=== PATIENT | male | born 1930 | race Caucasian/White ===

== ENCOUNTER 2019-03-23 18:36 | Inpatient (IN) | payer MEDICARE, BC ==
[~2019-03-23] VITALS: Ht 175.3 cm; Wt 82.9 kg
[2019-03-23] MEDS ORDERED: VITA100C8 PO (19:13)
[2019-03-23] MEDS ORDERED: CLOP75TA52 PO (19:13)
[2019-03-23] MEDS ORDERED: LEVO100T PO (19:13)
[2019-03-23] MEDS ORDERED: SELE200T10 PO (19:13)
[2019-03-23] MEDS ORDERED: LOSA25TA12 PO (19:13)
[2019-03-23] MEDS ORDERED: ASPI-496 PO (19:13)
[2019-03-23 20:23] LABS: BASOPHILS # (AUTO) 0.02 x10^3/uL (0-0.1); BASOPHILS % (AUTO) 0 % (0-1); EOSINOPHILS # (AUTO) 0.05 x10^3/uL (0-0.4); EOSINOPHILS % (AUTO) 1 % (1-7); LYMPHOCYTES # (AUTO) 1.64 x10^3/uL (1-3.4); LYMPHOCYTES % (AUTO) 27 % (22-44); MD NO; MEAN CORPUSCULAR HEMOGLOBIN 32.2 pg (27.5-34.5); MEAN CORPUSCULAR HGB CONC 33.7 g/dL (33.2-36.2); MEAN CORPUSCULAR VOLUME 95.5 fL (81-97); MEAN PLATELET VOLUME 8.4 fL (7.4-10.4); MONOCYTES # (AUTO) 0.43 x10^3/uL (0.2-0.8); MONOCYTES % (AUTO) 7 % (2-9); NEUTROPHILS # (AUTO) 3.86 x10^3/uL (1.8-6.8); NEUTROPHILS % (AUTO) 64 % (42-75); PLATELET COUNT 215 x10^3/uL (130-400); RED BLOOD COUNT 3.92 x10^6/uL (4.38-5.82); RED CELL DISTRIBUTION WIDTH 13.4 % (9.4-14.8)
[2019-03-23 20:33] LABS: ALBUMIN 3.3 g/dL (3.4-5.0); ANION GAP 9 mmol/L (5-15); CALCIUM 8.5 mg/dL (8.5-10.1); CHLORIDE 110 mmol/L (98-107); CREATININE 0.78 mg/dL (0.7-1.3); INTERNATIONAL NORMALIZED RATIO 1.05 (0.93-1.1)
--- NOTE | 2019-03-23 21:20 | NUR ---
UA COLLECTED AND SENT.
--- NOTE | 2019-03-23 21:42 | NUR ---
RECEIVED REPORT FROM CYNTHIA FRIEDMAN, ASSUMING CARE
[2019-03-23 21:55] LABS: MICROSCOPIC INDICATED
--- NOTE | 2019-03-23 21:59 | NUR ---
MD TO BEDSIDE TO UPDATE PT ON POC. PT TO BE ADMITTED TO [facility] FOR UROLOGY CONSULT. CBI CONTINUING AT THIS TIME.
[2019-03-23 22:05] LABS: CULTURE INDICATED? YES
[2019-03-23] MEDS ORDERED: ONDANSETRON 2MG/ML, 2ML ONE (22:16)
[2019-03-23] MEDS ORDERED: MORPHINE SULFATE 4 MG/ML, 1ML ONE (22:17)
--- NOTE | 2019-03-23 22:19 | NUR ---
PT MEDICATED FOR PAIN PER MAR
[2019-03-23] MEDS ORDERED: ONDANSETRON 2MG/ML, 2ML IVPush PRN ×2 (22:30→23:30)
[2019-03-23] MEDS ORDERED: MORPHINE SULFATE 4 MG/ML, 1ML IVPush PRN (22:30)
--- NOTE | 2019-03-23 22:46 | NUR ---
REPORT GIVEN TO SOTERO FRIEDMAN, PT READY FOR TRANSPORT. UPON LEAVING ER PT CARRILLO DRAINING WELL. CBI GOING CONTINUOUS AT FULL SPEED, PT TOLERATING WELL AFTER PAIN MEDS GIVEN
[2019-03-23 23:23] VITALS: BP 118/73
[2019-03-23] MEDS ORDERED: LABETALOL 5MG/ML, 20ML IVPush PRN (23:30)
[2019-03-23] MEDS ORDERED: POLYETHYLENE GLYCOL 17 GM PACKET PO PRN (23:30)
[2019-03-23] MEDS ORDERED: DOCUSATE 100 MG CAPSULE PO PRN (23:30)
[2019-03-23] MEDS ORDERED: ONDANSETRON ODT 4 MG PO PRN (23:30)
[2019-03-23] MEDS ORDERED: PROMETHAZINE 25 MG/ML, 1ML IM PRN (23:30)
[2019-03-23] MEDS ORDERED: BISACODYL 10 MG SUPP PR PRN (23:30)
[2019-03-23] MEDS ORDERED: morphine SULFATE 10 MG/ML, 1ML IVPush PRN (23:30)
[2019-03-23] MEDS ORDERED: hydrALAzine 20 MG/ML, 1ML IVPush PRN (23:30)
[2019-03-23] MEDS ORDERED: ACETAMINOPHEN 325 MG TABLET PO PRN (23:30)
[2019-03-23] MEDS ORDERED: HYDROcodone/APAP 5/325 TABLET PO PRN (23:30)
[2019-03-23 23:54] LABS: FREE T4 (FREE THYROXINE) 0.97 ng/dL (0.76-1.46)
[2019-03-23 23:55] LABS: HEMOGLOBIN A1C 5.7 % (4.2-6.3)
[2019-03-24] MEDS: CEFTRIAXONE PMX 2GM/50ML 50 ML IV SCH ×2 (00:54→23:36)
[2019-03-24] MEDS: SODIUM CHLORIDE 0.9% 1,000 ML IV SCH ×2 (00:54→14:44)
[2019-03-24 02:09] VITALS: BP 104/68
[2019-03-24 02:35] LABS: BASOPHILS # (AUTO) 0.02 x10^3/uL (0-0.1); BASOPHILS % (AUTO) 0 % (0-1); EOSINOPHILS # (AUTO) 0.12 x10^3/uL (0-0.4); EOSINOPHILS % (AUTO) 2 % (1-7); LYMPHOCYTES # (AUTO) 2.06 x10^3/uL (1-3.4); LYMPHOCYTES % (AUTO) 26 % (22-44); MD NO; MEAN CORPUSCULAR HEMOGLOBIN 32.1 pg (27.5-34.5); MEAN CORPUSCULAR HGB CONC 33.3 g/dL (33.2-36.2); MEAN CORPUSCULAR VOLUME 96.5 fL (81-97); MEAN PLATELET VOLUME 8.6 fL (7.4-10.4); MONOCYTES # (AUTO) 0.63 x10^3/uL (0.2-0.8); MONOCYTES % (AUTO) 8 % (2-9); NEUTROPHILS # (AUTO) 5.08 x10^3/uL (1.8-6.8); NEUTROPHILS % (AUTO) 64 % (42-75); PLATELET COUNT 196 x10^3/uL (130-400); RED BLOOD COUNT 3.68 x10^6/uL (4.38-5.82); RED CELL DISTRIBUTION WIDTH 13.6 % (9.4-14.8)
[2019-03-24 02:53] LABS: ALANINE AMINOTRANSFERASE 14 U/L (12-78); ALBUMIN 3.1 g/dL (3.4-5.0); ANION GAP 8 mmol/L (5-15); CALCIUM 8.2 mg/dL (8.5-10.1); CHLORIDE 109 mmol/L (98-107); CREATININE 0.81 mg/dL (0.7-1.3)
[2019-03-24 02:55] LABS: ALKALINE PHOSPHATASE 54 U/L (45-117); BILIRUBIN,TOTAL 0.6 mg/dL (0.2-1.0); CHOL/HDL RATIO 3.6; CHOLESTEROL, TOTAL 139 mg/dL (140-239); HDL CHOL % 28 % (26-37); HDL CHOLESTEROL (DIRECT) 39 mg/dL (40-60); LDL CHOLESTEROL,CALCULATED 81 mg/dL (54-169); LDL/HDL RATIO 2.1 (0.5-3.0); TOTAL PROTEIN 6.5 g/dL (6.4-8.2); TRIGLYCERIDES 96 mg/dL (50-200); VLDL CHOLESTEROL 19 mg/dL (0-25)
[2019-03-24] MEDS: LEVOTHYROXINE 100 MCG TABLET PO SCH (06:15)
[2019-03-24 07:25] VITALS: BP 132/74
[2019-03-24] MEDS ORDERED: OMNIPAQUE 350 MG/ML, 100ML BOTTLE ONE (09:26)
[2019-03-24] MEDS: LOSARTAN 25MG TABLET PO SCH (09:28)
[2019-03-24] MEDS ORDERED: FINASTERIDE 5 MG TABLET PO ONE (10:30)
[2019-03-24 12:38] LABS: BASOPHILS # (AUTO) 0.02 x10^3/uL (0-0.1); BASOPHILS % (AUTO) 0 % (0-1); EOSINOPHILS # (AUTO) 0.04 x10^3/uL (0-0.4); EOSINOPHILS % (AUTO) 1 % (1-7); LYMPHOCYTES # (AUTO) 1.86 x10^3/uL (1-3.4); LYMPHOCYTES % (AUTO) 24 % (22-44); MD NO; MEAN CORPUSCULAR HEMOGLOBIN 32.3 pg (27.5-34.5); MEAN CORPUSCULAR HGB CONC 33.7 g/dL (33.2-36.2); MEAN PLATELET VOLUME 8.4 fL (7.4-10.4); MONOCYTES # (AUTO) 0.56 x10^3/uL (0.2-0.8); MONOCYTES % (AUTO) 7 % (2-9); NEUTROPHILS # (AUTO) 5.25 x10^3/uL (1.8-6.8); NEUTROPHILS % (AUTO) 68 % (42-75); PLATELET COUNT 210 x10^3/uL (130-400); RED BLOOD COUNT 3.82 x10^6/uL (4.38-5.82); RED CELL DISTRIBUTION WIDTH 13.8 % (9.4-14.8)
[2019-03-24 12:53] VITALS: BP 112/68
[2019-03-24 20:40] VITALS: BP 131/79
[2019-03-25 01:34] VITALS: BP 152/80
[2019-03-25] MEDS: LEVOTHYROXINE 100 MCG TABLET PO SCH (05:52)
[2019-03-25 07:02] VITALS: BP 158/76
[2019-03-25] MEDS: LOSARTAN 25MG TABLET PO SCH (07:52)
[2019-03-25 12:05] VITALS: BP 138/73
[2019-03-25] MEDS ORDERED: CEFD300C37 PO (15:44)
== END 2019-03-25 16:45 | disposition home or self-care (01) | DRG 690 ==
LOC: EDBD 18:36 → ED 22:02 → 3NW 22:51
PROVIDERS: ADMIT Internal Medicine; ATTEND Internal Medicine
DX: N39.0 Urinary tract infection, site not specified (principal); D68.59 Other primary thrombophilia; E44.0 Moderate protein-calorie malnutrition; D64.9 Anemia, unspecified; E03.9 Hypothyroidism, unspecified; E27.8 Other specified disorders of adrenal gland; I10 Essential (primary) hypertension; R33.8 Other retention of urine; R31.0 Gross hematuria; I48.91 Unspecified atrial fibrillation; Z68.27 Body mass index [BMI] 27.0-27.9, adult; Z79.02 Long term (current) use of antithrombotics/antiplatelets; Z87.891 Personal history of nicotine dependence; Z98.1 Arthrodesis status
CPT/HCPCS: 36415; 51702; 74177; 80048; 80053; 80061; 81001; 82040; 83036; 83735; 84439; 84443; 85014; 85018; 85025; 85610; 87086; 96372; 96375; G0378; J0696; J2405; Q9967; J2270; J7030